=== PATIENT | female | born 1985 | race Caucasian/White ===

== ENCOUNTER 2017-01-05 12:16 | Emergency (ER) | payer OTHER ==
[~2017-01-05] VITALS: Ht 160 cm; Wt 98.0 kg
[2017-01-05 12:25] VITALS: BP 125/86; RESP 17; O2SAT 98
--- NOTE | 2017-01-05 14:08 | ED.REPORT ---
HPI-Dental/Mouth Prob Date of Service Jan 05, 2017 ED Provider: Lyle Haas PA-C Vanessa is a 31-year-old female with chief complaint of right jaw and ear pain. Reports pain over the last 2 days in her right lower jaw as well as swelling noted today. Pain radiates to her ear and behind her jaw. Reports a history of dental caries. She does not have a dentist here. Nursing Notes Stated Complaint: RT JAW/EAR PAIN Chief Complaint: ENT & Mouth Nursing Notes Reviewed: Yes Allergies: Coded Allergies: No Known Allergies (Unverified , 01/05/17) Scheduled Amoxicillin (Amoxicillin) 500 Mg Tablet 500 MG PO BID Scheduled PRN Hydrocodone-Acetaminophen 5-325 mg (Hydrocodone-Acetaminophen 5-325 mg) 1 Each Tablet 1-2 TABLET PO QID PRN PRN For Pain General Time Seen by MD: 13:55 Chief Complaint Jaw swelling Past Medical History Past Medical History Denies Review of Systems Review of Systems Note: Negative unless stated otherwise in history of present illness Physical Exam General: Well appearing, well developed, well nourished, no acute distress. Head: Atraumatic, normocephalic. No mastoid tenderness. Eyes: No scleral icterus or injection. No discharge. PERRL. Vision grossly intact. Ears: Pinna and tragus nontender with manipulation. External auditory canal patent, atraumatic and without discharge. Tympanic membrane clarke, shiny and translucent without fluid, bulging, retraction or perforation. Hearing grossly intact. Nose: Symmetrical, nares patent without discharge. No frontal or maxillary sinus tenderness. Mouth/pharynx: Tooth #31 in the right lower jaw is tender to percussion with a tongue blade. Amalgam filling is intact. No redness, swelling, discharge or fluctuance is noted. Mucus membranes moist. Tonsils 2+ and symmetrical, uvula midline. Pharynx noninjected, no cobblestoning or discharge. Voice clear. Neck: No swelling noted. No tenderness or lymphadenopathy. Trachea midline. Respiratory: No respiratory distress, no increased work of breathing. Speaks in complete sentences. Skin: Warm and dry. Neurological: Grossly nonfocal. Psychological: alert and oriented. Speech appropriate, linear and logical. Behavior appropriate. Initial Vital Signs Vital Signs (First) Date Time Temp Pulse Resp B/P Pulse Ox O2 Delivery O2 Flow Rate FiO2 01/05/17 12:25 37.1 74 17 125/86 98 Room Air Normal Re-Eval/Medical Decision Med Decision/Clinical Course 31-year-old female complaining of left jaw pain, swelling for the last several days. Denies difficulty breathing, swallowing. On physical exam a can find no obvious swelling however left lower molar is tender to percussion with a tongue blade. There is no firmness in the base of the mouth, asymmetry in the pharynx , negative trismus. Patient is afebrile. I cannot find a drainable abscess at this time. Her pain is likely secondary to dental infection, I am reassured regarding peritonsillar abscess, Israel's angina, retropharyngeal abscess. Provided prescription for amoxicillin, advised analgesia with acetaminophen and provide a small amount of Caruthers to supplement with precautions. Advised dental follow-up, provided emergency return precautions. Patient verbalizes understanding of and consent to the plan. Discharge & Departure Primary Impression: Infected dental caries Disposition: Home Discharge Condition All VS Reviewed: Yes Condition: Stable Additional Instructions: Evaluation for right jaw pain emergency Department included history and physical examination. Both of which are reassuring at this is unlikely to be caused by immediately dangerous condition. I do not see an abscess that can be drained to help this improve. Because that tooth right lower jaw is tender, I believe this is caused by an infection in the tooth. This will require treatment by dentist. Right referral to [facility], though I suggest that you call around to find dentist with openings. I will write a prescription for amoxicillin 500 mg to be taken twice a day for 5 days. The pain is best treated with 600 mg of ibuprofen (Advil, Motrin) every 6 hours , or 1000 mg of acetaminophen (Tylenol) every 6 hours. These drugs can be taken at the same time for more severe pain. I have written a prescription for a small amount of hydrocodone/acetaminophen 5/ 325 mg which can be SUBSTITUTED for the Tylenol to treat more severe pain. Do not take them together, and do not drink alcohol or operate a vehicle within 4 hours of taking this medication. Return to emergency department for any new or worsening symptoms such as difficulty breathing, inability to fully open your mouth or inability to swallow. Referrals: [facility] EDSupervising Provider for APC: Leonid Etienne MD, Seth PA-C Jan 05, 2017 14:08
[2017-01-05] MEDS ORDERED: HYDROcodone-APAP 5-325 mg Tablet PO ONE (14:10)
[2017-01-05] MEDS ORDERED: AMOX500T2 PO (14:14)
[2017-01-05] MEDS ORDERED: HYDR-4003 PO (14:14)
== END 2017-01-05 14:18 | disposition home or self-care (01) ==
LOC: SED 12:16
DX: K02.9 Dental caries, unspecified (principal); K04.7 Periapical abscess without sinus